=== PATIENT | male | born 1995 | race Caucasian/White ===

== ENCOUNTER 2021-04-05 15:53 | Emergency (ER) | payer OTHER ==
[~2021-04-05] VITALS: Ht 177.8 cm; Wt 68.0 kg
[~2021-04-05 15:53] MED LIST: ATIVAN1 MG; ATIVAN1 MG PO; BUSPAR5 MG PO; DIAZEPAM5 MG PO; KENALOG0.1% TP; Miralax Powder255 GM PO; PROCTOFOAM-HC 11 FOA RC; SERTRALINE HYD100 MG PO; VALIUM2 MG PO; VISTARIL25 M1 PO; XANAX0.5 MG PO; ZOFRAN ODT4 MG SL
[2021-04-05] MEDS ORDERED: AMOXICILLIN500 M2 PO (17:05)
== END 2021-04-05 17:45 | disposition home or self-care (01) ==
LOC: ED 15:53
DX: K08.89 Other specified disorders of teeth and supporting structures (principal); Z79.899 Other long term (current) drug therapy

== ENCOUNTER 2024-06-29 16:23 | Emergency (ER) | payer SELFPAY ==
[~2024-06-29 16:23] MED LIST changes: +AMOXICILLIN500 M2 PO
[2024-06-29] MEDS ORDERED: IOHEXOL 300 MG/ML 100 ML VIAL IV ONE (17:00)
[2024-06-29 17:01] LABS: BASO % 0.7 % (0.0-1.0); EOS # 0.1 10*3/uL (0.0-0.4); EOS % 1.5 % (1.0-4.0); HEMATOCRIT 39.8 % (42.0-52.0); LYMPH # 1.9 10*3/uL (1.3-4.4); LYMPH % 32.2 % (27.0-41.0); MEAN CELL VOLUME 87.1 fl (80.0-94.0); MEAN CORPUSCULAR HGB 28.7 pg (27.0-31.0); MEAN CORPUSCULAR HGB CONC 32.9 g/dl (33.0-37.0); MEAN PLATELET VOLUME 9.6 fl (9.6-12.3); MONO # 0.4 10*3/uL (0.1-1.0); MONO % 5.9 % (3.0-9.0); NEUT # 3.5 10*3/uL (2.3-7.9); NEUT % 59.5 % (47.0-73.0); PLATELET COUNT AUTOMATED 212 10*3/uL (130-400); RED BLOOD COUNT 4.57 10*6/uL (4.50-5.90); RED CELL DISTRI WIDTH 13.2 % (0-14.5); WHITE BLOOD COUNT 5.9 10*3/uL (4.8-10.8)
[2024-06-29 17:21] LABS: ALKALINE PHOSPHATASE 73 U/L (46-116); BUN 13 mg/dl (9-23); CHLORIDE 105 mmol/L (98-107); LIPASE 47 U/L (12-53); POTASSIUM 3.8 mmol/L (3.4-5.1); SGPT/ALT 33 U/L (5-49); TOTAL PROTEIN 7.3 gm/dL (6.0-8.0)
[2024-06-29] MEDS ORDERED: Ketorolac Tromethamine 30 MG/ML VIAL IV ONE (18:55)
[2024-06-29] MEDS ORDERED: CIPRO500 MG PO (20:48)
[2024-06-29] MEDS ORDERED: METRONIDAZOLE500 M1 PO (20:48)
== END 2024-06-29 20:20 | disposition left against medical advice (07) ==
LOC: ED 16:23
PROVIDERS: Physician Assistant Medical
DX: R10.32 Left lower quadrant pain (principal); F41.9 Anxiety disorder, unspecified; F32.A Depression, unspecified; Z53.29 Procedure and treatment not carried out because of patient's decision for other reasons; Z98.890 Other specified postprocedural states; Z87.891 Personal history of nicotine dependence